=== PATIENT | male | born 1960 | race Caucasian/White ===

== ENCOUNTER 2019-12-11 16:35 | Emergency (ER) | payer OTHER ==
[2019-12-11] MEDS ORDERED: EPINEPHrine 1 MG/ML SDV IM ONE (16:36)
[2019-12-11] MEDS ORDERED: methylPREDNISolone Sod Succ 125 MG in Dextrose 5% in Water 100 ML IV ONE ×2 (16:47)
[2019-12-11] MEDS ORDERED: Famotidine 20 MG/2 ML SDV IVPUSH ONE (16:47)
[2019-12-11] MEDS ORDERED: Sodium Chloride 0.9% 10 ML Syringe FLUSH PRN (16:48)
[2019-12-11] MEDS ORDERED: Famotidine 20 MG/2 ML SDV ONE (16:49)
[2019-12-11] MEDS ORDERED: Sodium Chloride 0.9% 1,000 ML IV SCH (17:00)
--- NOTE | 2019-12-11 17:17 | EDM.PDOC ---
ED HPI GENERAL MEDICAL PROBLEM - General Chief Complaint: Allergic Reaction Stated Complaint: MEDICAL [facility] Time Seen by Provider: 12/11/19 16:40 Source of Information: Reports: Patient, EMS, Family, RN Notes Reviewed History Limitations: Reports: No Limitations - History of Present Illness INITIAL COMMENTS - FREE TEXT/NARRATIVE: Jayesh presents via EMS today from [facility] for complaints of allergic reaction. Insect sting around noon today. Patient then developed hives, edema to face, lips, tongue 2 to 3 hours after sting. EMS administered bendaryl 50mg IM while in transit. Jayesh denies any recent illness, fever, chills, nausea, vomiting, diarrhea, constipation or other concerns. 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) Social & Family History - Family History Family Medical History: Noncontributory ED ROS ALLERGIC REACTION - Review of Systems Review Of Systems: See Below Constitutional: Reports: Chills HEENT: Reports: Other (edema of lips, tongue, face) Respiratory: Denies: Shortness of Breath, Wheezing, Cough, Sputum, Hemoptysis Cardiovascular: Reports: No Symptoms Endocrine: Reports: No Symptoms GI/Abdominal: Reports: No Symptoms : Reports: No Symptoms Musculoskeletal: Reports: No Symptoms Skin: Reports: Other (edema face, urticaria to head, all extremities) Neurological: Reports: No Symptoms Psychiatric: Reports: No Symptoms Hematologic/Lymphatic: Reports: No Symptoms Immunologic: Reports: No Symptoms ED EXAM GENERAL NO PERIP PULSE - Physical Exam Exam: See Below Exam Limited By: No Limitations General Appearance: Alert, WD/WN, Mild Distress Eye Exam: Bilateral Eye: EOMI, Normal Inspection, PERRL Ears: Normal External Exam, Normal Canal, Hearing Grossly Normal, Normal TMs Nose: Normal Inspection, Normal Mucosa Throat/Mouth: Normal Gums, Normal Voice, Other (edema to tongue) Head: Facial Swelling, Other (edema to eyes, lips). No: Facial Tenderness, Sinus Tenderness Neck: Normal Inspection, Supple, Non-Tender, Full Range of Motion. No: Lymphadenopathy (R), Lymphadenopathy (L) Respiratory/Chest: No Respiratory Distress, Lungs Clear, Normal Breath Sounds, No Accessory Muscle Use, Other (Edema to upper and lower lips, tongue. Airway open, easy respirations. ). No: Crackles, Rales, Rhonchi, Wheezing, Stridor, Accessory Muscle Use, Retractions Cardiovascular: Normal Peripheral Pulses, No Gallop, No Murmur, No Rub, Bradycardia Back Exam: Full Range of Motion, Other (raised urticaria). No: CVA Tenderness (R), CVA Tenderness (L), Muscle Spasm Extremities: Normal Range of Motion, Non-Tender, Normal Capillary Refill, Other (urticaria, raised) Neurological: Alert, Oriented, CN II-XII Intact, Normal Cognition, Normal Gait, Normal Reflexes, No Motor/Sensory Deficits Psychiatric: Normal Affect, Normal Mood Skin Exam: Dry, Intact, Other (raised urticaria to scalp, bilateral upper and lower extremities, back, chest, abdomen, edema to upper and lower lips, edema tongue. ) Course - Vital Signs Last Recorded V/S: Last Vital Signs Temp 38.5 C H 12/11/19 17:51 Pulse 58 L 12/11/19 18:36 Resp 26 H 12/11/19 18:36 BP 109/45 L 12/11/19 18:36 Pulse Ox 92 L 12/11/19 18:36 - Orders/Labs/Meds Orders: Active Orders 24 hr Category Date Time Status Saline Lock Insert [OM.PC] Routine Oth 12/11/19 16:48 Ordered Meds: Medications Discontinued Medications Generic Name Dose Route Start Last Admin Trade Name Bailey PRN Reason Stop Dose Admin Epinephrine HCl 0.4 mg 12/11/19 16:36 12/11/19 17:52 Adrenalin IM 12/11/19 16:37 0.4 mg ONETIME ONE Administration Famotidine 20 mg 12/11/19 16:47 12/11/19 17:58 Pepcid IVPUSH 12/11/19 16:48 20 mg ONETIME ONE Administration Famotidine Confirm 12/11/19 16:49 Pepcid Administered 12/11/19 16:50 Dose 20 mg .ROUTE .STK-MED ONE Methylprednisolone Sodium 102 mls @ 200 mls/hr 12/11/19 16:47 12/11/19 18:00 Succinate 125 mg/ Dextrose/ IV 12/11/19 17:18 Not Given Water ONETIME ONE Sodium Chloride 1,000 mls @ 999 mls/hr 12/11/19 17:00 12/11/19 17:58 Normal Saline IV 999 mls/hr ASDIRECTED LINA Administration Methylprednisolone Sodium Succinate 125 mg 12/11/19 17:56 12/11/19 17:57 Solu-Medrol IVPUSH 12/11/19 17:57 125 mg ONETIME ONE Administration Sodium Chloride 10 ml 12/11/19 16:48 12/11/19 17:58 Saline Flush FLUSH 10 ml ASDIRECTED PRN Administration Keep Vein Open - Re-Assessments/Exams Free Text/Narrative Re-Assessment/Exam: 12/11/19 17:17 Jayesh reports he feels a little better. No tongue swelling at this time. Edema to lips and face remain. No Respiratory distress or wheezing. 12/11/19 18:20 Patient resting without complaint, significant improvement in urticaria. No SOB, wheezing, facial swelling decreased. Repeat temperature 37.0 degrees C. Case reviewed with Dr. Chowdary, she is in agreement with plan to discharge to home. Departure - Departure Time of Disposition: 18:50 Disposition: Home, Self-Care 01 Condition: Good Clinical Impression: Allergic angioedema, Urticaria - Discharge Information *PRESCRIPTION DRUG MONITORING PROGRAM REVIEWED*: No *COPY OF PRESCRIPTION DRUG MONITORING REPORT IN PATIENT MIGUE: No Instructions: Angioedema, [id number] Referrals: PCP,None [Primary Care Provider] - Forms: ED Department Discharge Additional Instructions: Drink plenty of water to stay hydrated. Take prednisone 40mg by mouth daily for 5 days starting tomorrow morning. Take cetirizine 10mg by mouth once daily until edema/hives resolved. Take benadryl 50mg by mouth three times a day until edema/hives resolved. Take famotidine 20mg by mouth twice per day until edema/hives resolved. Use epi-pen for allergic reaction, edema of face, lips, tongue or airway. Repeat injection in 20 minutes if edema becomes worse. Report to the emergency room when epi is used for evaluation. Return at any time for worsening, issues or concerns. Sepsis Event Note (ED) - Focused Exam Vital Signs: Vital Signs Temp Pulse Resp BP Pulse Ox 12/11/19 18:36 58 L 26 H 109/45 L 92 L 12/11/19 17:51 38.5 C H 48 L 24 H 98/51 L 98 12/11/19 17:07 48 L 24 H 98/51 L 98 12/11/19 16:38 38.5 C H 43 L 12 89/52 L 93 L - My Orders Last 24 Hours: My Active Orders 12/11/19 16:48 Saline Lock Insert [OM.PC] Routine - Assessment/Plan Last 24 Hours: My Active Orders 12/11/19 16:48 Saline Lock Insert [OM.PC] Routine Assessment:: Allergic angioedema, Urticaria Plan: Drink plenty of water to stay hydrated. Take prednisone 40mg by mouth daily for 5 days starting tomorrow morning. Take cetirizine 10mg by mouth once daily until edema/hives resolved. Take benadryl 50mg by mouth three times a day until edema/hives resolved. Take famotidine 20mg by mouth twice per day until edema/hives resolved. Use epi-pen for allergic reaction, edema of face, lips, tongue or airway. Repeat injection in 20 minutes if edema becomes worse. Report to the emergency room when epi is used for evaluation. Return at any time for worsening, issues or concerns.
[2019-12-11] MEDS ORDERED: methylPREDNISolone Sodium Succinate 125 MG/2 ML SDV IVPUSH ONE (17:56)
== END 2019-12-11 19:16 | disposition home or self-care (01) ==
LOC: JP.ED 16:35
DX: T78.3XXA Angioneurotic edema, initial encounter (principal); Z79.899 Other long term (current) drug therapy
CPT/HCPCS: 96372; 96374; 96375; 99283; J0171; J2930; J3490; J7030